=== PATIENT | male | born 1990 | race Caucasian/White ===

== ENCOUNTER 2023-07-06 15:46 | Outpatient (AMB) | payer OTHER, SELFPAY ==
--- NOTE | 2023-07-06 15:50 | MHC.OFFWIV ---
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 Patient states that 1 day prior he was doing construction work and thought some debris from drywall got into his right eye. Patient states he washed his eye out and felt better, but states that today he still feels like there might be something in his eye. Denies vision change. Denies photophobia, denies discharge, denies fever, denies periorbital pain. on physical exam patient is not in acute distress. Extraocular movements intact, pupils PERRLA, no discharge, no periorbital tenderness, sclera white, no photophobia. Patient does not wear contact lenses had LASIK eye surgery several years ago. Fluorescense stain does not reveal abrasion, no opacities. Red reflexes are present. Patient get a lump in eyedrops. Has been instructed to come back to the walk-in if symptoms do not improve in 1 day. Patient has been educated on signs of worsening symptoms and when to report to the emergency room. This is for workman's comp. Review of Systems Const Details: Constitutional : No Weight loss, No Fever, No Chills, No Fatigue, No Malaise Eyes: Admits some right eye discomfort. Denies vision change. Denies discharge. Cardiovascular : No Chest Pain, No SOB, No Dyspnea on Exertion, No Orthopnea, No Edema, No Palpitations Respiratory : No Cough, No Sputum, No Wheezing Neuro : No Weakness, No Numbness, No Dizziness, No Headache All other systems reviewed and are negative Physical Exam Vital Signs: Last Vital Signs Pulse 86 07/06/23 15:54 BP 116/78 07/06/23 15:54 Pulse Ox 98 07/06/23 15:54 Oxygen Delivery Method Room Air 07/06/23 15:54 Vital signs reviewed stable. Const General: no acute distress Orientation/consciousness: patient oriented x3 Limitations: no limitations HEENT Head: Yes normal to inspection Eyes General: appearance normal, both eyes and all related structures Visual Jenkins: normal visual jenkins by confrontation Alignment and Position: alignment normal Periorbital: periorbital findings normal Eyelids: Yes eyelids normal Conjunctivae: conjunctivae normal Sclerae: sclerae normal Corneas: corneas normal Pupils: Equal, round and reactive pupils present, Pupils normal by confrontation and Pupil accommodation reflex normal EOM: EOMs intact bilaterally Direct Ophthalmoscopy: normal light reflex, no photophobia, no papilledema and other (No noted abrasion with fluorescence. ) Neuro General: patient oriented x3 Cranial nerves: Yes Equal, round and reactive pupils present Assessment & Plan Assessment & Plan (1) Abrasion of right eye: Comment: Patient given follow-up to deny drops to be taken as directed. No obvious abrasion with fluorescence test. Patient's eyesight, sclera, pupils, and extraocular eye movements all normal. Patient has been instructed to return to the walk-in and 1 day if symptoms do not improve. Code(s): S05.8X1A - Other injuries of right eye and orbit, initial encounter Qualifiers: Encounter type: initial encounter Qualified Code(s): S05.8X1A - Other injuries of right eye and orbit, initial encounter Plan: Take your medications as prescribed. If you were prescribed antibiotics today, it is important that you take your medication to their entirety, do not skip any doses, do not finish them early. Follow-up with your primary care provider this week. Return to the emergency department with new or worsening symptoms. Such as fevers, chills, chest pain, shortness of breath, nausea, vomiting, dizziness, headache, vision changes, lethargy In case of emergency call 911 Plan This is for worker's comp Medications: New olopatadine 0.2% 1 drp ophthalmic (eye) DAILY PRN 2.5 mL 0RF itching Coding Level of Care Code Est Pt Level 3 (94404) Diagnoses Abrasion of right eye, initial encounter S05.8X1A Encounter type: initial encounter Time Spent (min) 25
[2023-07-06 15:54] VITALS: BP 116/78; PULSE 86; O2SAT 98
== END 2023-07-06 16:33 | disposition home or self-care (01) ==
PROVIDERS: PCP Internal Medicine; Visit Provider Nurse Practitioner Primary Care
DX: S05.8X1A Other injuries of right eye and orbit, initial encounter (principal)
CPT/HCPCS: 99213

== ENCOUNTER 2023-07-24 12:43 | Outpatient (AMB) | payer OTHER, SELFPAY ==
--- NOTE | 2023-07-24 13:48 | AM.OFFWIN_ITS ---
Intake Vital Signs 3 07/24/23 13:49 Height 5 ft 7 in Weight 123 lb 2 oz BMI 19.3 BP 118/62 Blood Pressure Location Lt brachial Position Sitting Pulse 60 Pulse Source Pulse Oximeter Temp 97.8 F Temp Source Oral Pulse Oximetry (%) 99 Oxygen Delivery Method Room Air Intake Visit Reasons: EP WC Eye Intake Note: Patient is here with right eye dryness, still after being seen here on 07/05 for this. Allergies Sulfa (Sulfonamide Antibiotics) [SULFA (SULFONAMIDE ANTIBIOTICS)] Allergy (Mild, Unverified 07/24/23 13:52) HIVES Do you need a note to return to daycare/school/sports/work: No HPI EP WC Eye 2 HPI0 Details Patient is a 33 year male who comes the walk-in clinic complaining of right eye irritation that has been persistent since walk-in visit almost 3 weeks ago. 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 He was prescribed allergy drops for the eyes, for which he states his symptoms have not changed, and he was told to follow up if needed. He still feels like there is something in the eye that is making it uncomfortable to open and close his lids. He denies vision change, headache, dizziness or vertigo, discharge, red eye, or other significant associated symptoms. Physical Exam Vital Signs: Last Vital Signs Temp 97.8 F 07/24/23 13:49 Pulse 60 07/24/23 13:49 BP 118/62 07/24/23 13:49 Pulse Ox 99 07/24/23 13:49 Oxygen Delivery Method Room Air 07/24/23 13:49 BMI result Body Mass Index 19.3 Eyes Eyes/upper lids images: 2 1. Approximately 1 mm thin line of fluorescein uptake as diagrammed, not visible under normal light Assessment & Plan Assessment & Plan (1) Foreign body in eye: Code(s): T15.90XA - Foreign body on external eye, part unspecified, unspecified eye, initial encounter Qualifiers: Encounter type: subsequent encounter Laterality: right Qualified Code(s): T15.91XD - Foreign body on external eye, part unspecified, right eye, subsequent encounter Plan: Patient has a very small area of fluorescein uptake just inferior to his right cornea at the 7 o'clock position. I suspect that it is a small piece of debris, possibly fiberglass, that is causing him persistent irritation. I wrote him for erythromycin ophthalmic ointment to help with lubricating the eye and preventing infection. I was not able to remove the foreign body for him however, and I advised that he follow-up with an customer service receptionist as soon as possible. I put through a referral for him, and gave him the contact information for the [facility] of [place]. Orders: Referrals 2 Ophthalmology Referral S05.8X1A - Other injuries of right eye and orbit, initial encounter Medications: New 2 erythromycin 0.5 inches ophthalmic (eye) TID 3.5 grams 0RF Coding Level of Care Code Est Pt Level 4 (60117) Diagnoses Foreign body of right eye, subsequent encounter T15.91XD Encounter type: subsequent encounter Laterality: right
[2023-07-24 13:49] VITALS: BP 118/62; PULSE 60; TEMP 36.6; O2SAT 99; BMI 19.3
== END 2023-07-24 14:49 | disposition home or self-care (01) ==
PROVIDERS: PCP Internal Medicine; Visit Provider Physician Assistant Medical
DX: T15.91XD Foreign body on external eye, part unspecified, right eye, subsequent encounter (principal)
CPT/HCPCS: 99214

== ENCOUNTER 2023-12-31 08:53 | Outpatient (AMB) | payer OTHER, SELFPAY ==
--- NOTE | 2023-12-31 09:07 | MHC.OFFWIV ---
Intake Vital Signs 12/31/23 09:09 Height 5 ft 7 in Weight 130 lb BMI 20.4 BP 114/76 Blood Pressure Location Lt brachial Position Sitting Pulse 71 Pulse Source Pulse Oximeter Temp 98.1 F Temp Source Oral Pulse Oximetry (%) 98 Oxygen Delivery Method Room Air Intake Visit Reasons: EP-rt knee pain Intake Note: pt c/o RT knee pain. Started Wednesday. Patient Tobacco Use Status: Never used Tobacco Allergies Sulfa (Sulfonamide Antibiotics) [SULFA (SULFONAMIDE ANTIBIOTICS)] Allergy (Mild, Verified 12/31/23 09:12) HIVES Do you need a note to return to daycare/school/sports/work: Yes HPI HPI Comments History of Present Illness Details Patient is a 33-year-old male complaining of right knee pain for 5 days. He denies any injury. He states he is on his knees a lot for work, he places insulation in attics. He states he has been using ice with minimal relief. He is on a blood thinner so he can not take NSAIDs. [facility] Social History Patient Tobacco Use Status: Never used Tobacco Review of Systems Const All systems reviewed & are unremarkable except as noted in HPI and below Physical Exam Vital Signs: Last Vital Signs Temp 98.1 F 12/31/23 09:09 Pulse 71 12/31/23 09:09 BP 114/76 12/31/23 09:09 Pulse Ox 98 12/31/23 09:09 Oxygen Delivery Method Room Air 12/31/23 09:09 BMI result Body Mass Index 20.4 Const General: cooperative, healthy appearing, comfortable and no acute distress Orientation/consciousness: patient oriented x3 Limitations: no limitations HEENT Head: Yes normal to inspection Resp Effort & Inspection: normal respiratory effort and able to speak in complete sentences Neuro General: patient oriented x3 Extrem Left lower extremity: knee Details: tenderness Location: of the infrapatellar area, swelling Location: of the infrapatellar area, normal ROM and knee ligament exam normal; no abrasions, no lacerations, no ecchymosis and no unusual warmth Assessment & Plan Assessment & Plan (1) Bursitis of right knee: Code(s): M70.51 - Other bursitis of knee, right knee Qualifiers: Knee bursitis location: infrapatellar bursitis Qualified Code(s): M70.51 - Other bursitis of knee, right knee Plan: As patient can not take NSAIDs recommended using ice and resting it, wrote him a work note to stay out until January 03. Also Kevin wrapped it, if no resolution in symptoms, he should follow up with his PCP. Plan See above Coding Level of Care Code New Pt Level 3 (73165) Diagnoses Infrapatellar bursitis of right knee M70.51 Knee bursitis location: infrapatellar bursitis
[2023-12-31 09:09] VITALS: BP 114/76; PULSE 71; TEMP 36.7; O2SAT 98; BMI 20.4
== END 2023-12-31 10:26 | disposition home or self-care (01) ==
PROVIDERS: PCP Internal Medicine; Visit Provider Physician Assistant
DX: M70.51 Other bursitis of knee, right knee (principal)
CPT/HCPCS: 99203

== ENCOUNTER 2024-03-01 14:32 | Outpatient (AMB) | payer OTHER, SELFPAY ==
[2024-03-01 14:40] VITALS: BP 90/60; PULSE 61; TEMP 36.6; O2SAT 98; BMI 20.4
--- NOTE | 2024-03-01 14:40 | MHC.OFFWIV ---
Intake Vital Signs 03/01/24 14:40 Height 5 ft 7 in Weight 130 lb BMI 20.4 BP 90/60 Blood Pressure Location Lt brachial Position Sitting Pulse 61 Pulse Source Pulse Oximeter Temp 97.8 F Temp Source Oral Pulse Oximetry (%) 98 Oxygen Delivery Method Room Air Intake Visit Reasons: EP-lt hip pain/work injury Intake Note: Pt is here today c/o Lt hip pain/WC Patient Tobacco Use Status: Never used Tobacco Allergies Sulfa (Sulfonamide Antibiotics) [SULFA (SULFONAMIDE ANTIBIOTICS)] Allergy (Mild, Verified 03/01/24 14:40) HIVES HPI HPI Comments History of Present Illness Details Patient is a 33-year-old male complaining of left hip pain. 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 He can point to exactly the spot where the pain is on the side of his left hip. He has not tried taking any medications to make it feel better. Tells me it is making him limp a little bit. PFSH Social History Patient Tobacco Use Status: Never used Tobacco Review of Systems Const All systems reviewed & are unremarkable except as noted in HPI and below Physical Exam Vital Signs: Last Vital Signs Temp 97.8 F 03/01/24 14:40 Pulse 61 03/01/24 14:40 BP 90/60 03/01/24 14:40 Pulse Ox 98 03/01/24 14:40 Oxygen Delivery Method Room Air 03/01/24 14:40 BMI result Body Mass Index 20.4 Const General: cooperative, healthy appearing, comfortable and no acute distress Orientation/consciousness: patient oriented x3 Limitations: no limitations HEENT Head: Yes normal to inspection Resp Effort & Inspection: normal respiratory effort and able to speak in complete sentences Back/Spine/Pelvis Pelvis: no pain with lateral compression (Left hip) Neuro General: patient oriented x3 Assessment & Plan Assessment & Plan (1) Hip bursitis, left: Code(s): M70.72 - Other bursitis of hip, left hip Qualifiers: Hip bursitis location: trochanteric bursitis Qualified Code(s): M70.62 - Trochanteric bursitis, left hip Plan: As patient takes warfarin 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 Filled out paperwork to keep him out of work for the next 5 days to rest his hip and return on March 06. Plan See above Coding Level of Care Code New Pt Level 3 (79250) Diagnoses Trochanteric bursitis of left hip M70.62 Hip bursitis location: trochanteric bursitis
== END 2024-03-01 15:18 | disposition home or self-care (01) ==
PROVIDERS: PCP Internal Medicine; Visit Provider Physician Assistant
DX: M70.62 Trochanteric bursitis, left hip (principal)

== ENCOUNTER → 2024-03-01 14:32 | Outpatient (BNVA) | payer OTHER, SELFPAY | PROVIDERS: PCP Internal Medicine; Visit Provider Physician Assistant | DX: M70.62 Trochanteric bursitis, left hip (principal) | CPT/HCPCS: 99202 ==